=== PATIENT | female | born 1960 | race Caucasian/White ===

== ENCOUNTER 2018-01-04 19:50 | Emergency (ER) | payer SELFPAY ==
[2018-01-04] MEDS: IBUPROFEN 200 MG TAB PO (21:05)
[2018-01-04] MEDS: DIAZEPAM 5 MG TAB PO (21:05)
== END 2018-01-04 22:40 | disposition home or self-care (01) ==
LOC: FTE 19:50
DX: S13.4XXA Sprain of ligaments of cervical spine, initial encounter (principal); I10 Essential (primary) hypertension; V49.59XA Passenger injured in collision with other motor vehicles in traffic accident, initial encounter
CPT/HCPCS: 71045; 72072; 99284-25